=== PATIENT | male | born 1990 | race American Indian/Alaskan Native ===

== ENCOUNTER 2021-09-27 16:47 | Emergency (ER) | payer MEDICAID ==
[2021-09-27 18:57] VITALS: BP 129/94
== END 2021-09-28 07:00 | disposition left against medical advice (07) ==
LOC: ED 16:47
DX: Z13.30 Encounter for screening examination for mental health and behavioral disorders, unspecified (principal); Z53.21 Procedure and treatment not carried out due to patient leaving prior to being seen by health care provider